=== PATIENT | female | born 1965 | race Caucasian/White ===

== ENCOUNTER → 2017-02-11 | Outpatient (CLI) | payer OTHER ==
[2017-02-11 19:41] LABS: Basophils # (A) 0.1 k/uL (0-0.2); Basophils % (A) 1 %; CH 25.1; CHCM 30.4; Eosinophils # (A) 0.4 k/uL (0-0.7); Eosinophils % (A) 4 %; HCT 39.4 % (34.0-46.0); HDW 2.53; HGB 12.1 gm/dL (11.4-16.0); Hypochromasia Moderate; Luc # (Auto) 0.17; Luc % (Auto) 2; Lymphocytes % (A) 33 %; MCH 25.6 pg (25.0-35.0); MCHC 30.8 g/dL (31.0-37.0); Mean Platelet Volume 6.6; Monocytes # (A) 0.5 k/uL (0-1.0); Monocytes % (A) 5 %; Neutrophils % (A) 55 %; RBC 4.74 m/uL (3.80-5.40); RDW 13.5 % (11.5-15.5); WBC 9.1 k/uL (3.8-10.6); WBC (Perox) 9.32
[2017-02-11 19:48] LABS: Anion Gap 10 mmol/L; Blood Urea Nitrogen 9 mg/dL (7-17); Carbon Dioxide 25 mmol/L (22-30); Chloride 102 mmol/L (98-107); Glucose 90 mg/dL (74-99); Non-African American GFR(MDRD) 55 (>60 ml/min/1.73 sqM); Sodium 137 mmol/L (137-145)
== END ==
LOC: LAB 18:44
PROVIDERS: ATTEND Obstetrics & Gynecology
DX: Z01.812 Encounter for preprocedural laboratory examination (principal); N81.3 Complete uterovaginal prolapse
CPT/HCPCS: 80051; 82565; 82947; 84520; 85025; 86850; 86900; 86901

== ENCOUNTER → 2017-02-12 | Outpatient (CLI) | payer OTHER | END | disposition home or self-care (01) | LOC: LABPAT 16:32 | PROVIDERS: ATTEND Obstetrics & Gynecology | DX: Z01.810 Encounter for preprocedural cardiovascular examination (principal); I10 Essential (primary) hypertension | CPT/HCPCS: 87086; 93005 ==

== ENCOUNTER 2017-02-19 05:50 | Observation (INO) | payer OTHER ==
[2017-02-11 12:38] VITALS: BMI 35.2
[~2017-02-19 05:50] MED LIST: LACTATED RINGERS 1,000 ML IV SCH; LIDOCAINE 1% 20 ML VIAL (10MG/ML) FOR IV START INTRADERMA PRN; MIDAZOLAM 2 MG/2 ML VIAL IV PRN; ONDANSETRON 4 MG/2 ML VIAL IVP PRN; ceFAZolin 2 GM in SODIUM CHLORIDE 0.9% 100 ML IVPB ONE
[2017-02-19] MEDS ORDERED: LACTATED RINGERS 1,000 ML IV ONE (06:08)
[2017-02-19] MEDS ORDERED: DEXAMETHASONE SOD PHOS (MDV) 100 MG/10 ML VIAL IVP ONE (06:20)
[2017-02-19] MEDS ORDERED: VASOPRESSIN 20 UNIT/ML 1 ML VIAL SQ ONE ×2 (07:22→08:23)
[2017-02-19 07:59] LABS: Appearance,Urine Clear (Clear); Bilirubin,Urine Negative (Negative); Glucose,Urine (UA) Negative (Negative); Ketones,Urine Negative (Negative); Leukocyte Esterase,Urine Negative (Negative); Nitrite,Urine Negative (Negative); Protein,Urine Negative (Negative); Specific Gravity,Urine 1.005 (1.001-1.035); UA Billing (MACRO vs. MICRO) CHEM; Urobilinogen,Urine <2.0 mg/dL (<2.0)
[2017-02-19] MEDS ORDERED: fentaNYL (PF) 50 MCG/ML 2 ML AMP ONE (08:09)
[2017-02-19] MEDS ORDERED: LIDOCAINE 1% INJ 10MG/ML (20 ML MDV) ONE (08:09)
[2017-02-19] MEDS ORDERED: SUCCINYLCHOLINE CHLORIDE 100 MG/5 ML SYR IV ONE (08:09)
[2017-02-19] MEDS ORDERED: PROPOFOL 10 MG/ML 20 ML VIAL IV ONE (08:09)
[2017-02-19] MEDS ORDERED: MIDAZOLAM 2 MG/2 ML VIAL ONE (08:09)
[2017-02-19] MEDS ORDERED: KETOROLAC 30 MG/ML 1 ML VIAL ONE (08:09)
[2017-02-19] MEDS ORDERED: BACITRACIN 500 UNIT/GM OINT 28.4 GM TUBE TOPICAL ONE (08:52)
[2017-02-19] MEDS ORDERED: Acetaminophen-Codeine 300-30mg TAB PO PRN (08:53)
[2017-02-19] MEDS ORDERED: SIMETHICONE 80 MG CHEWABLE PO PRN (08:53)
[2017-02-19] MEDS ORDERED: diphenhydrAMINE 50 MG/ML 1 ML VIAL IVP PRN (08:53)
[2017-02-19] MEDS ORDERED: IBUPROFEN 600 MG TAB PO PRN (08:53)
[2017-02-19] MEDS ORDERED: METOCLOPRAMIDE 5 MG/ML 2 ML VIAL IVP PRN (08:53)
[2017-02-19] MEDS ORDERED: LACTATED RINGERS 1,000 ML IV SCH (09:00)
--- NOTE | 2017-02-19 09:01 | P.OP ---
Date of Procedure: 02/19/17 Preoperative Diagnosis: #1. Symptomatic grade 3 cystocele Postoperative Diagnosis: Same Procedure(s) Performed: 1. Anterior colporrhaphy Implants: Anesthesia: CHARITYA Surgeon: Hussein Tolbert Electroformer #1: Miya Leach Estimated Blood Loss (ml): 20 IV fluids (ml): 300 Urine output (ml): 900 Pathology: none sent Condition: stable Disposition: PACU Indications for Procedure: Operative Findings: Preoperative pelvic examination confirmed a grade 3 cystocele with reasonable apical support and no significant rectocele present. Description of Procedure: The patient was prepped and draped in usual fashion after general endotracheal anesthesia was established by the anesthesiologist. The bladder was draining approximately 900 mL of clear cleo urine. The uterosacral dimples were grasped with Allis clamps and the vesicovaginal mucosa infused with diluted vasopressin solution. The uterosacral dimples were then connected using a scalpel to open the apex. The vesicovaginal mucosa was then undermined in the midline and divided using Metzenbaum scissors to the urethral apex with Allises placed on the margins. The mucosa was then sharply and bluntly dissected from the underlying tissues. Once adequate dissection had been carried out, serial Debora plication stitches were placed using 2-0 PDS from the urethral apex to the apex of the vagina. The excess mucosa was then trimmed and discarded. The mucosa was closed with a running locking stitch of 2-0 Vicryl from the urethra apex to the apex of the vagina. The bladder was then catheterized for clear cleo urine and the vagina packed with a 1 inch iodophor gauze covered with bacitracin ointment. Estimated blood loss for the case was approximately 20 mL. There were no complications. All sponge, instrument, and needle counts were correct. The patient tolerated the procedure well and proceeded to the recovery room in stable condition.
[2017-02-19] MEDS: HYDROmorphone 1 MG/ML 1 ML SYRINGE IVP PRN ×2 (09:50→10:00)
[2017-02-19] MEDS: KETOROLAC 30 MG/ML 1 ML VIAL IVP PRN (14:03)
[2017-02-19] MEDS: Acetaminophen-Codeine 300-30mg TAB PO PRN ×2 (15:21→21:24)
[2017-02-19] MEDS: SENNOSIDES-DOCUSATE SODIUM 1 EACH TAB PO SCH ×2 (19:45→21:24)
[2017-02-20] MEDS: KETOROLAC 30 MG/ML 1 ML VIAL IVP PRN (00:55)
[2017-02-20 04:13] VITALS: PULSE 70
[2017-02-20] MEDS: Acetaminophen-Codeine 300-30mg TAB PO PRN (06:32)
[2017-02-20 06:41] LABS: Basophils % (A) 0 %; CH 25.3; Eosinophils % (A) 0 %; HDW 2.44; HGB 11.2 gm/dL (11.4-16.0); Hypochromasia Marked; Luc % (Auto) 1; Lymphocytes # (A) 1.9 k/uL (1.0-4.8); Lymphocytes % (A) 19 %; MCH 25.6 pg (25.0-35.0); MCHC 30.2 g/dL (31.0-37.0); MCV 84.8 fL (80.0-100.0); Mean Platelet Volume 7.1; Monocytes # (A) 0.5 k/uL (0-1.0); Monocytes % (A) 5 %; Neutrophils # (A) 7.6 k/uL (1.3-7.7); Neutrophils % (A) 75 %; RBC 4.37 m/uL (3.80-5.40); RDW 13.7 % (11.5-15.5); WBC 10.1 k/uL (3.8-10.6); WBC (Perox) 10.56
[2017-02-20] MEDS: SENNOSIDES-DOCUSATE SODIUM 1 EACH TAB PO SCH (07:56)
--- NOTE | 2017-02-20 08:33 | P.DS ---
Providers Date of admission: 02/20/17 02:13 Expected date of discharge: 02/20/17 Attending physician: Hussein Tolbert Primary care physician: Dandre Nakul [facility] Course: The patient is a 51-year-old woman who presented to the office with complaints of a vaginal bulge which was demonstrated to be a grade 3-4 cystocele. There was no other apparent prolapse noted in the office of significance. She was counseled regarding options and agreed to undergo cystocele repair. She was taken to the operating room where she underwent the procedure and uncomplicated fashion. No other defects were discovered under anesthesia. Her postoperative course has been unremarkable with vital signs remaining stable and her temperature has been afebrile throughout. She is tolerating regular diet and reports good pain control. She has not yet been able to void since the Collins catheter has been removed but will undergo a post void residual using the bladder scanner. As long as she is able to adequately void, she will be discharged home to follow-up in the office in 2 weeks and 6 weeks routinely. Discharge instructions included calling for any significantly increased fever, pain, urinary complaints, GI complaints, or anything else that concerned her. She is additionally instructed to do no heavy lifting over the next 6 weeks' time as well as to abstain from anything in the vagina to include intercourse over the same period. She understood her instructions and agrees to follow up as noted above. Discharge medications included only her normal home medications as well as a prescription for Tylenol 3, 1-2 by mouth every 6 hours when necessary pain, #20 dispensed with no refills. Discharge hemoglobin and hematocrit were 11.2 and 37.0 respectively. Procedures: #1. Anterior colporrhaphy Patient Condition at Discharge: Good Plan - Discharge Summary New Discharge Prescriptions: No Action Sertraline [Zoloft] 100 mg PO DAILY Omeprazole [PriLOSEC] 20 mg PO AC-BID LORazepam [Ativan] 0.5 - 1 mg PO DAILY PRN PRN Reason: Anxiety Verapamil HCl [Verapamil ER] 120 mg PO DAILY Discharge Medication List LORazepam [Ativan] 0.5 - 1 mg PO DAILY PRN 02/11/17 [History] Omeprazole [PriLOSEC] 20 mg PO AC-BID 02/11/17 [History] Sertraline [Zoloft] 100 mg PO DAILY 02/11/17 [History] Verapamil HCl [Verapamil ER] 120 mg PO DAILY 02/11/17 [History] Follow up Appointment(s)/Referral(s): Hussein Tolbert MD [STAFF PHYSICIAN] - 2 Weeks Discharge Disposition: HOME SELF-CARE
[2017-02-20 09:32] VITALS: BP 121/75; RESP 16; TEMP 97.2
== END 2017-02-20 10:42 | disposition home or self-care (01) ==
LOC: OR 05:50 → 6PED 09:16 → OR 02-20 02:13
PROVIDERS: ADMIT Obstetrics & Gynecology; ATTEND Obstetrics & Gynecology
DX: N81.10 Cystocele, unspecified (principal); R10.2 Pelvic and perineal pain; K62.5 Hemorrhage of anus and rectum; K59.00 Constipation, unspecified; I10 Essential (primary) hypertension; Z79.899 Other long term (current) drug therapy; Z88.1 Allergy status to other antibiotic agents; Z88.8 Allergy status to other drugs, medicaments and biological substances; Z90.710 Acquired absence of both cervix and uterus; Z90.49 Acquired absence of other specified parts of digestive tract; Z98.84 Bariatric surgery status; Z80.3 Family history of malignant neoplasm of breast; Z80.8 Family history of malignant neoplasm of other organs or systems; Z83.3 Family history of diabetes mellitus; Z82.49 Family history of ischemic heart disease and other diseases of the circulatory system; Z87.891 Personal history of nicotine dependence
CPT/HCPCS: 57240; 85025; 81003; 87086; G0378; J2250; J0690; J2405; J2001; J3010; J1885 ×2; J1170; J1100; J0330; J2704

== ENCOUNTER → 2018-02-15 | Outpatient (CLI) | payer BC ==
--- NOTE | 2018-02-15 10:43 | MR ---
EXAMINATION TYPE: MR lumbar spine wo con DATE OF EXAM: 02/15/2018 COMPARISON: NONE HISTORY: Back TECHNIQUE: T1 and T2 axial and sagittal images of the lumbar spine are submitted. FINDINGS: There is no abnormal signal seen within the visualized spinal cord or paraspinal soft tissu es. There is focal cortical loss of the right kidney which may be on the basis of previous infection or infarction. Aorta of normal caliber. At L1-2 there is no disc herniation, canal stenosis, or foraminal encroachment. At L2-3 there is no disc herniation or canal stenosis. Very minimal left lateral disc bulging but no foraminal encroachment. At L3-4 there is hypertrophic change facets. No canal stenosis or foraminal encroachment no focal her niation. At L4-5 there is circumferential disc bulging with hypertrophy of the facets and ligamentum flavum an d mild canal stenosis and mild bilateral foraminal encroachment At L5-S1 there is facet arthropathy and broad-based central disc bulging. Mild bilateral foraminal en croachment. Borderline canal stenosis. Loss of disc signal at L3-4, L4-5 and L5-S1 compatible with mild degenerative disc disease. No compre ssion deformities. Alignment anatomic IMPRESSION: 1. Multilevel degenerative disc disease with disc bulging at L4-5 with hypertrophic change of the fac ets and ligamentum flavum resulting in mild canal stenosis and bilateral foraminal encroachment 2. Hypertrophic change of the facets and ligamentum flavum at L5-S1 with circumferential disc bulging results in borderline canal stenosis
--- NOTE | 2018-02-15 11:46 | CT ---
EXAMINATION TYPE: CT brain azuline wo con DATE OF EXAM: 02/15/2018 COMPARISON: NONE HISTORY: Headaches with history of cervical fusion CT DLP: 1600.5 mGycm Automated exposure control for dose reduction was used. TECHNIQUE: CT scan of the head and cervical spine are performed without contrast. FINDINGS: BRAIN: There is no acute intracranial hemorrhage, mass effect, or midline shift identified. The ventricles and sulci are within normal limits in size. The globes are intact and the visualized sinuses are cl ear.Faint periventricular and white matter areas of low-attenuation are nonspecific but likely the ba sis of remote microvascular ischemia and could be correlated with MRI. CERVICAL SPINE: Cervical spine demonstrates postsurgical change extending from levels C4-C6. Alignment is near-anatom ic with loss of the normal cervical lordosis. Shotty adenopathy seen scattered throughout the soft ti ssues of the neck. At C2-C3 there is no disc herniation or canal stenosis. No foraminal encroachment. At C3-C4 there is no disc herniation or canal stenosis. Mild hypertrophic change of the facets. No fo raminal encroachment. C4-5, C5-6 disc spaces are nondiagnostic due to extreme metal artifact from postsurgical change. At C6-C7 there is limited assessment spinal canal secondary to artifact. Disc bulging not excluded.. Neural foramina appear patent. At C7-T1 there is no obvious disc herniation or canal stenosis. Facet arthropathy noted. Incidental note is made of a dilated esophagus up to the cervical thoracic junction appears to contai n particulate matter. This should be correlated clinically. IMPRESSION: 1. There is postsurgical change with artifact limiting assessment of the surgical levels. 2. No acute intracranial hemorrhage, mass effect, or midline shift is seen. Faint periventricular and white matter areas of low-attenuation are nonspecific but likely the basis of remote microvascular i schemia and could be correlated with MRI. 3. The esophagus appears dilated with particular matter extending into the cervical thoracic region. Correlation with direct visualization or esophagram suggested.
== END | disposition home or self-care (01) ==
LOC: RADMRIMAIN 09:34
PROVIDERS: ATTEND Psychiatry & Neurology Pain Medicine
DX: M48.061 Spinal stenosis, lumbar region without neurogenic claudication (principal); M51.27 Other intervertebral disc displacement, lumbosacral region; M51.36 Other intervertebral disc degeneration, lumbar region; R51 Headache; M54.2 Cervicalgia; Z98.890 Other specified postprocedural states
CPT/HCPCS: 70450; 72125; 72148

== ENCOUNTER → 2019-09-04 | Outpatient (CLI) | payer BC ==
--- NOTE | 2019-09-10 10:12 | HM ---
HOLTER MONITOR REPORT Patient was monitored for 24 hours. CLINICAL INFORMATION: Baseline rhythm is sinus mechanism with normal conduction the average rate 76 beats per minute minimum of 54, maximum of 129 beats per minute. Ventricular ectopic activity was not present, supraventricular ectopic activity was present in the form for a single PACs. No symptoms were reported. CONCLUSION: 1. Sinus mechanism baseline rhythm. 2. No ventricular ectopic activity. 3. Rare supraventricular ectopic activity. 4. No symptoms were reported. MMODL / IJN: [id number] /
== END | disposition home or self-care (01) ==
LOC: RADECHMAIN 12:12
PROVIDERS: ATTEND Internal Medicine
DX: R55 Syncope and collapse (principal)
CPT/HCPCS: 93225; 93226

== ENCOUNTER → 2020-06-30 | Outpatient (CLI) | payer BC ==
--- NOTE | 2020-07-04 12:04 | MM ---
Reason for exam: screening (asymptomatic). History: Patient is postmenopausal. Family history of breast cancer in maternal grandmother. Physical Findings: A clinical breast exam by your physician is recommended on an annual basis and results should be correlated with mammographic findings. MG Screening Mammo w CAD Bilateral CC and MLO view(s) were taken. No prior studies available for comparison. There are scattered fibroglandular densities. There is no discrete abnormality. ASSESSMENT: Negative, BI-RAD 1 RECOMMENDATION: Routine screening mammogram of both breasts in 1 year.
== END | disposition home or self-care (01) ==
LOC: RADMAMWWP 08:09
PROVIDERS: ATTEND Internal Medicine
DX: Z12.31 Encounter for screening mammogram for malignant neoplasm of breast (principal)
CPT/HCPCS: 77067

== ENCOUNTER → 2021-05-05 | Outpatient (CLI) | payer OTHER ==
--- NOTE | 2021-05-06 01:44 | MR ---
EXAMINATION TYPE: MR chest wo con DATE OF EXAM: 05/05/2021 COMPARISON: Cervical spine CT scan 02/15/2018 HISTORY: Left sprain of sternoclavicular (joint). Sternoclavicular joint pain that goes into left fili ulder. No injury. Multiplanar multiecho imaging of the sternoclavicular joints was obtained with no contrast. There is increased signal on the STIR images in the medial and of the left clavicle. There is also sl ight increased signal in the adjacent manubrium. I see no fracture line. There is soft tissue swellin g and edema around the left sternoclavicular joint. There is no sign of retrosternal mass. The right sternoclavicular joint appears normal with normal signal pattern. IMPRESSION: There is edema on both sides of the left sternoclavicular joint consistent with bone bruise. There is surrounding soft tissue swelling. This is consistent with ligamentous tear and edema. There is sligh t widening of the inferior aspect of the left sternoclavicular joint compared to the right.
== END | disposition home or self-care (01) ==
LOC: RADMRIMAIN 19:08
PROVIDERS: ATTEND Orthopaedic Surgery
DX: R60.0 Localized edema (principal); M79.89 Other specified soft tissue disorders
CPT/HCPCS: 71550

== ENCOUNTER → 2021-05-13 | Outpatient (CLI) | payer OTHER ==
[2021-05-13 14:25] LABS: Uric Acid 6.8 mg/dL (3.7-7.4)
[2021-05-13 17:10] LABS: Basophils # (A) 0.13 X 10*3/uL (0.00-0.10); Basophils % (A) 1.3 %; Eosinophils # (A) 0.36 X 10*3/uL (0.04-0.35); Eosinophils % (A) 3.7 %; HCT 44.5 % (37.2-46.3); HGB 14.4 g/dL (12.0-15.0); Lymphocytes # (A) 3.69 X 10*3/uL (0.90-5.00); Lymphocytes % (A) 37.7 %; MCH 30.9 pg (27.0-32.0); MCHC 32.4 g/dL (32.0-37.0); MCV 95.5 fL (80.0-97.0); Mean Platelet Volume 10.9 fL (9.5-12.2); Monocytes # (A) 0.86 X 10*3/uL (0.20-1.00); Monocytes % (A) 8.8 %; Neutrophils # (A) 4.72 X 10*3/uL (1.80-7.70); Neutrophils % (A) 48.2 %; Platelet Count 337 X 10*3/uL (140-440); RBC 4.66 X 10*6/uL (4.10-5.20); RDW 14.3 % (11.5-14.5); WBC 9.79 X 10*3/uL (4.50-10.00)
[2021-05-13 19:30] LABS: Erythrocyte Sedimentation Rate 27 mm/Hr (0-30)
[2021-05-14 09:42] LABS: Rheumatoid Factor, Qnt <4 IU/mL (0-15)
== END | disposition home or self-care (01) ==
LOC: LABWHC1 11:34
PROVIDERS: ATTEND Orthopaedic Surgery
DX: M25.50 Pain in unspecified joint (principal)
CPT/HCPCS: 36415; 84550; 85025; 85652; 86038; 86140; 86431; 86618; 86812

== ENCOUNTER → 2024-04-29 | Outpatient (CLI) | payer MEDICARE, OTHER ==
--- NOTE | 2024-05-21 06:53 | MR ---
Patient: Minda Henderson E Ordering Physician: Unknown, Unknown ID: [id number] Phone, Pager: Phone: N/A Pager: N/A : [phone] Age/Gender: 59Y, F Primary Location: N/A Procedure: MR knee LT shani howard Date: 04/29/2024 4:19:05 PM Order #: N/[id number] EXAMINATION TYPE: MR knee LT wo con DATE OF EXAM: 05/07/2024 COMPARISON: NONE HISTORY: Left knee pain after pivoting injury. Unilateral primary osteoarthritis. Internal derangemen t. TECHNIQUE: Multiplanar, multisequence images of the knee is performed without IV contrast. FINDINGS: Evaluation slightly suboptimal secondary to patient's large body habitus MEDIAL MENISCUS: Triangular shaped increased signal in the posterior horn does not extend to articula r surface. LATERAL MENISCUS: Anterior and posterior horns are intact without tear. CRUCIATE LIGAMENTS: The anterior and posterior cruciate ligaments are intact and unremarkable. COLLATERAL LIGAMENTS: The medial collateral ligament and lateral collateral ligament complex are inta ct and unremarkable. EXTENSOR MECHANISM: Visualized quadriceps and patellar tendons are intact. EFFUSION: Moderate sized suprapatellar joint effusion. POPLITEAL CYST: No popliteal/staples cyst. TRICOMPARTMENT SPACES: Moderate to severe narrowing patellofemoral compartment with mild spurring. Mi ld to moderate narrowing medial and lateral tibiofemoral compartments with mild/moderate spurring CARTILAGE: Full thickness chondromalacia patella along the posterior patellar pole. BONE MARROW SIGNAL: There is diminished T1 signal lateral tibiofemoral compartment coronal image 21. There is heterogeneous increased T2 signal posterior aspect of the distal lateral femoral condyle Tin y increased T2 signal posterior aspect patella sagittal image 16. OTHER: Moderate diffuse subcutaneous edema is greatest laterally. IMPRESSION: 1. Suboptimal study with intrasubstance tear posterior horn medial meniscus. 2. Tricompartment degenerative changes most prominent patellofemoral and lateral tibiofemoral compart ment as detailed above. 3. Moderate size suprapatellar joint effusion. 4. Moderate diffuse subcutaneous edema.
== END | disposition home or self-care (01) ==
LOC: RADMRIMAIN 17:00
PROVIDERS: ATTEND Orthopaedic Surgery Sports Medicine
DX: M17.12 Unilateral primary osteoarthritis, left knee (principal); M23.8X2 Other internal derangements of left knee

== ENCOUNTER → 2024-09-04 | Outpatient (CLI) | payer MEDICARE ==
--- NOTE | 2024-09-04 19:40 | CT ---
EXAMINATION TYPE: CT lumbar spine wo/w con DATE OF EXAM: 09/04/2024 4:02 PM COMPARISON: 02/15/2018 MRI. 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 Soft tissue and bone windows in coronal and sagittal planes were obtained and reviewed. 3-D ref ormats of the bones were created on a separate workstation and submitted for review. Contrast used: mL of Isovue 300 without and with IV Contrast, (None, if empty). Oral contrast used: (None, if empty). CT DLP: 3875.7 mGycm, Automated exposure control for dose reduction was used. FINDINGS: Alignment: There are 5 lumbar type vertebral bodies within normal alignment. Bone: No evidence of fracture is identified. Multilevel degeneration changes with osteophyte formati on, disc space narrowing, facet joint arthropathy. No abnormal postcontrast enhancement. Discs: T12-L1: No spinal canal or neural foraminal stenosis is identified. L1-L2: No spinal canal or neural foraminal stenosis is identified. L2-L3: No spinal canal or neural foraminal stenosis is identified. L3-L4: No spinal canal or neural foraminal stenosis is identified. L4-L5: Facet joint arthropathy and disc bulging result in moderate spinal canal stenosis and mild to moderate bilateral neural foraminal stenosis. L5-S1: Facet joint arthropathy and disc bulging result in mild to moderate spinal canal stenosis and mild to moderate bilateral neural foraminal stenosis. Other: None IMPRESSION: 1. No evidence for spinal fracture. 2. Mild to moderate degeneration changes throughout the spine 3. Moderate L4-L5 spinal canal stenosis secondary disc bulge and facet joint arthropathy. Finding coty ears progressed from 2018. 4. Mild to moderate bilateral neural foraminal stenosis at L5-S1. [facility], , 09/04/2024 7:37 PM
== END | disposition home or self-care (01) ==
LOC: RADCTMAIN 15:26
PROVIDERS: ATTEND Physical Medicine & Rehabilitation Pain Medicine
DX: M47.817 Spondylosis without myelopathy or radiculopathy, lumbosacral region (principal); M51.360 Other intervertebral disc degeneration, lumbar region with discogenic back pain only; M48.061 Spinal stenosis, lumbar region without neurogenic claudication
CPT/HCPCS: 72133; Q9967